=== PATIENT | male | born 1995 | race African-American/Black ===

== ENCOUNTER 2017-04-02 15:49 | Emergency (ER) | payer OTHER ==
[~2017-04-02] VITALS: Ht 170.2 cm; Wt 76.6 kg
[2017-04-02] MEDS ORDERED: FLUORESCEIN OPHTH 1 MG STRIP OD ONE (16:30)
[2017-04-02] MEDS ORDERED: TETRACAINE 0.5% OPHTH SOLN 4ML OD ONE (16:30)
[2017-04-02] MEDS ORDERED: TOBRSUS8 OD (16:40)
[2017-04-02 17:01] VITALS: BP 123/78
== END 2017-04-02 17:02 | disposition home or self-care (01) ==
LOC: M ED 15:49
DX: H10.9 Unspecified conjunctivitis (principal); F17.210 Nicotine dependence, cigarettes, uncomplicated